=== PATIENT | male | born 1975 | race Caucasian/White ===

== ENCOUNTER 2025-07-15 21:15 | Emergency (ER) | payer OTHER ==
[~2025-07-15] VITALS: Ht 180.3 cm; Wt 72.6 kg
[2025-07-15 21:22] VITALS: BP 118/55
[2025-07-15] MEDS ORDERED: TETRACAINE HCL 0.5% OPHT DROP 2 ML BOTTLE ONE (22:13)
[2025-07-15] MEDS ORDERED: FLUORESCEIN SODIUM 1 MG STRIP ONE (22:13)
[2025-07-15] MEDS ORDERED: ERYTHROMYCIN 0.5% OPHT OINT 3.5 GM TUBE ONE (22:29)
[2025-07-15] MEDS: FLUORESCEIN SODIUM 1 MG STRIP OP ONE (22:31)
[2025-07-15] MEDS: TETRACAINE HCL 0.5% OPHT DROP 2 ML BOTTLE OP ONE (22:31)
[2025-07-15 22:53] VITALS: BP 120/70; O2SAT 99
== END 2025-07-15 22:05 | disposition home or self-care (01) ==
LOC: ER 21:34
DX: T15.02XA Foreign body in cornea, left eye, initial encounter (principal); W44.8XXA Other foreign body entering into or through a natural orifice, initial encounter; Y93.89 Activity, other specified; Y92.89 Other specified places as the place of occurrence of the external cause; Y99.8 Other external cause status
CPT/HCPCS: A4606; A4663